=== PATIENT | male | born 1960 | race Caucasian/White ===

== ENCOUNTER 2021-07-30 12:55 | Outpatient (CLI) | payer OTHER, SELFPAY ==
[2021-07-31 21:36] LABS: SARS-CoV-2 PCR by NAA Not Detected (NotDetected)
== END 2021-07-30 12:56 | disposition home or self-care (01) ==
LOC: LABBT 12:55
PROVIDERS: ATTEND Neurological Surgery
DX: Z01.818 Encounter for other preprocedural examination (principal); M51.16 Intervertebral disc disorders with radiculopathy, lumbar region; Z20.822 Contact with and (suspected) exposure to COVID-19
CPT/HCPCS: 93005; 93010; U0003; U0005

== ENCOUNTER 2021-08-04 06:26 | Day surgery (SDC) | payer OTHER ==
[2021-08-03 11:56] VITALS: BMI 32.5
[2021-08-04] MEDS ORDERED: Bupivacaine PF 0.5% 30 ML VIAL ONE (06:46)
[2021-08-04] MEDS ORDERED: EPINEPHrine 1 MG/ML AMP ONE (06:46)
[2021-08-04 07:04] LABS: #Basophils 0.1 thou/uL (0.0-0.2); #Eosinphils 0.4 thou/uL (0.0-0.7); #Lymphocytes 3.4 thou/uL (1.20-3.40); #Neutrophils 7.9 thou/uL (1.40-6.50); %Basophils 0.7 % (0.0-1.0); %Eosinophils 2.8 % (0.0-10.0); %Lymphocytes 26.8 % (21.0-51.0); %Monocytes 7.6 % (0.0-10.0); %Neutrophils 62.1 % (42.0-75.0); Hemoglobin 16.7 g/dL (14.0-18.0); Mean Corpuscular HGB CONC 33.5 g/dL (32.0-36.0); Mean Corpuscular Hemoglobin 30.4 pg (27.0-31.0); Mean Corpuscular Volume 90.7 fL (78.0-98.0); Mean Platelet Volume 7.8 fL (7.4-10.4); Platelet Count 334 thou/uL (130-400); RBC Distribution Width 12.3 % (11.5-14.5); Red Blood Cell (RBC) Count 5.49 mill/uL (4.70-6.10); White Blood Cell (WBC) Count 12.8 thou/uL (4.8-10.8)
[2021-08-04 07:22] LABS: Anion Gap 14 mmol/L (10-20); BUN (Urea Nitrogen) 15 mg/dL (8.4-25.7); Calc. Creatinine Clearance 116 mL/min (70-130); Calcium 9.9 mg/dL (7.8-10.44); Carbon Dioxide 24 mmol/L (23-31); Chloride 104 mmol/L (98-107); Glucose 119 mg/dL (80-115); Potassium 4.1 mmol/L (3.5-5.1); Sodium 138 mmol/L (136-145)
[2021-08-04 08:19] LABS: INR-International Normal Ratio 0.9; PTT 32.8 sec (22.9-36.1); Prothrombin Time 12.4 sec (12.0-14.7)
[2021-08-04] MEDS ORDERED: Fentanyl 100 MCG/2 ML VIAL ONE (08:38)
[2021-08-04] MEDS ORDERED: Rocuronium Bromide 10 MG/ML (10ML VIAL) ONE (08:53)
[2021-08-04] MEDS ORDERED: Dexamethasone 20 MG/5 ML VIAL ONE (08:53)
[2021-08-04] MEDS ORDERED: PROPOFOL 200 MG/20 ML VIAL ONE (08:53)
[2021-08-04] MEDS ORDERED: Ondansetron PF 4 MG/2 ML Vial ONE (08:53)
[2021-08-04] MEDS ORDERED: Lidocaine 1% PF 5 ML VIAL ONE (08:53)
[2021-08-04] MEDS ORDERED: ePHEDrine 50 MG/ML VIAL ONE (08:53)
[2021-08-04] MEDS ORDERED: Glycopyrrolate 0.2 MG/ML 5 ML SYRINGE ONE (08:53)
[2021-08-04] MEDS ORDERED: Ketorolac Tromethamine 30 MG/ML VIAL ONE (08:53)
[2021-08-04] MEDS ORDERED: hydrALAZINE 20 MG/ML VIAL ONE (10:29)
[2021-08-04] MEDS ORDERED: Tamsulosin HCl 0.4 MG CAP ONE (10:37)
[2021-08-04] MEDS ORDERED: HYDROcodone/Acetaminophen 5/325 mg Tablet ONE (13:11)
== END 2021-08-04 13:45 | disposition home or self-care (01) ==
LOC: SDC 06:26
PROVIDERS: ATTEND Neurological Surgery
PROC: 01NB0ZZ Release Lumbar Nerve, Open Approach (ICD-10-PCS; principal; 2021-08-04)
DX: M51.16 Intervertebral disc disorders with radiculopathy, lumbar region (principal); E78.5 Hyperlipidemia, unspecified; I25.10 Atherosclerotic heart disease of native coronary artery without angina pectoris; I10 Essential (primary) hypertension; J43.9 Emphysema, unspecified; F17.200 Nicotine dependence, unspecified, uncomplicated; Z79.02 Long term (current) use of antithrombotics/antiplatelets; Z79.82 Long term (current) use of aspirin; Z79.899 Other long term (current) drug therapy; Z95.5 Presence of coronary angioplasty implant and graft
CPT/HCPCS: 36415; 76000; 80048; 85025; 85610; 85730; J0171; J0360; J0690; J1100; J1885; J2405; J2704; J3010; J3490; S0020